=== PATIENT | female | born 1945 | race Caucasian/White ===

== ENCOUNTER 2016-11-17 14:54 | Emergency (ER) | payer MEDICARE ==
[~2016-11-17] VITALS: Ht 160 cm; Wt 59.0 kg
[2016-11-17 14:55] VITALS: BP_SYST 146
--- NOTE | 2016-11-17 14:55 | NUR ---
BROUGHT IN BY CYNTHIA MCGUIRE AND PLACED IN HALLWAY, TRIAGED. REPORT GIVEN TO LISA
--- NOTE | 2016-11-17 15:00 | NUR ---
Patient in stable condition, alert and oriented x4, no distress noted. Patient states that her right side of face "quivered" five times before she arrived to hospital. No other complaints/injuries per patient or noted.
--- NOTE | 2016-11-17 15:05 | NUR ---
Face symmetrical, no droop, speech clear, strength equal on all extremities.
--- NOTE | 2016-11-17 15:40 | NUR ---
Dr Sorto at bedside
[2016-11-17 16:31] LABS: BASOPHILS % (AUTO) 0.2 % (0.0-2.0); EOSINOPHILS # (AUTO) 0.4 K/uL (0.0-0.4); EOSINOPHILS % (AUTO) 6.3 % (0.0-4.0); HEMATOCRIT 26.4 % (36-48); HEMOGLOBIN 8.9 g/dL (12.0-16.0); LYMPHOCYTES # (AUTO) 0.8 K/uL (1.0-5.5); LYMPHOCYTES % (AUTO) 10.7 % (20.5-51.5); MEAN CORPUSCULAR HEMOGLOBIN 33 pg (27-31); MEAN CORPUSCULAR HGB CONC 34 % (32-36); MEAN CORPUSCULAR VOLUME 98 fL (79.0-98.0); MONOCYTES # (AUTO) 0.6 K/uL (0.0-1.0); NEUTROPHILS # (AUTO) 5.3 K/uL (1.8-7.7); NEUTROPHILS % (AUTO) 74.8 % (40.0-70.0); PLATELET COUNT (AUTO) 298 K/uL (130-430); RED BLOOD CELL COUNT(AUTO) 2.69 MIL/uL (4.2-6.2); WHITE BLOOD COUNT (AUTO) 7.1 K/uL (4.8-10.8)
[2016-11-17 16:35] LABS: ANION GAP 5 (5-15); CALCIUM 9.1 mg/dL (8.4-11.0); CHLORIDE 106 mmol/L (98-107); CREATININE 0.96 mg/dL (0.55-1.30); GLUCOSE 96 mg/dL (70-99); POTASSIUM 4.5 mmol/L (3.5-5.1); SODIUM SERUM 140 mmol/L (136-145); UREA NITROGEN, BLOOD 17 mg/dL (8-21)
[2016-11-17 16:40] LABS: ALANINE AMINOTRANSFERASE 15 U/L (12-78); ALBUMIN 2.8 g/dL (3.4-4.8); ASPARTATE AMINOTRANSFERASE 19 U/L (10-37); TOTAL BILIRUBIN 0.2 mg/dL (0.0-1.0); TOTAL PROTEIN, SERUM 7.1 g/dL (6.4-8.3)
--- NOTE | 2016-11-17 16:52 | NUR ---
Patient resting in bed, no distress noted.
[2016-11-17 17:11] VITALS: BP_SYST 138
--- NOTE | 2016-11-17 17:11 | NUR ---
Patient given written and verbal discharge instructions and verbalizes understanding. ER MD discussed with patient the results and treatment provided. MD gave copies of tests performed in ER. Patient in stable condition. ID arm band removed. Patient educated on pain management and to follow up with PMD in 1-2days. Pain Scale 0/10. Opportunity for questions provided and answered.
== END 2016-11-17 17:11 | disposition home or self-care (01) ==
LOC: SED 14:54
DX: R25.3 Fasciculation (principal); I10 Essential (primary) hypertension; I48.91 Unspecified atrial fibrillation; C34.90 Malignant neoplasm of unspecified part of unspecified bronchus or lung; Z88.0 Allergy status to penicillin; Z88.1 Allergy status to other antibiotic agents
CPT/HCPCS: 36415; 80053; 85025; 99284